=== PATIENT | male | born 1955 | race Two or more races ===

== ENCOUNTER 2024-03-07 04:47 | Inpatient (IN) | payer OTHER ==
[~2024-03-07] VITALS: Ht 175.3 cm; Wt 86.8 kg
[2024-03-07] VITALS (8 sets, daily range): BP systolic 112–125; BP diastolic 61–71; PULSE 69–123; RESP 12–21; TEMP 97.7–98.5; O2SAT 92–98
[2024-03-07 07:03] LABS: Basophils # (auto) 0.1 10 ^3/uL (0-0.2); Basophils % (auto) 0.5 % (0.0-2.0); Eosinophils # (auto) 0.1 10 ^3/uL (0-0.8); Eosinophils % (auto) 0.9 % (0.0-7.0); Hematocrit 49.3 % (41.0-53.0); Hemoglobin 16.7 g/dL (13.5-17.5); Lymphocytes % (auto) 18.8 % (10.0-50.0); Mean Corpuscular Hemoglobin 29.7 pg (28.0-32.0); Mean Corpuscular Hgb Conc. 33.9 g/dL (32.0-36.0); Mean Corpuscular Volume 87.6 fL (80.0-100.0); Monocytes # (auto) 1.1 10 ^3/uL (0-1.3); Monocytes % (auto) 10.5 % (0.0-12.0); Neutrophils # (auto) 7.5 10 ^3/uL (1.6-8.6); Neutrophils % (auto) 69.3 % (37.0-80.0); Nucleated Red Blood Cells % 0.1 %; Platelet Count (auto) 144 10^3/uL (140-450); Red Blood Cells 5.63 10^6/uL (4.5-5.90); Red Cell Distribution Width 14.5 % (11.8-14.3); White Blood Cell 10.8 10^3/uL (4.4-10.8)
[2024-03-07] MEDS: ONDANSETRON HCL 4 MG/2 ML VIAL IV ONE (07:07)
[2024-03-07] MEDS: MORPHINE SULFATE 4 MG/ML SYR/VIAL IV ONE (07:08)
--- NOTE | 2024-03-07 07:09 | ED.PDOC ---
GI ASSESSMENT HPI Comments 68y M who presents to the ED for chief complaint of abdominal pain. Pt states he has been having diffuse lower abdominal pain for the past 3 days. Pt states the pain is 9/10, intermittent, non-radiating, sharp and stabbing in nature, with no associated exacerbating or relieving factors. Pt has associated nausea but denies vomiting, diarrhea, fever, chills, dysuria, chest pain or shortness of breath. Pt otherwise denies any other symptoms at this time. Chief Complaint: Abdominal Pain Time Seen by MD: 07:04 Reviewed Notes: Medications, Allergies Allergies: Coded Allergies: NO KNOWN ALLERGIES (Unverified , 03/07/24) Information Source: Patient, Relative Mode of Arrival: Ambulatory Brought in by: daughter Past Medical History PAST MEDICAL HISTORY: DM, HTN Surgical History: Appendectomy Family History Family History: Unknown Social History Smoker: Unknown Alcohol: Unknown Drugs: Unknown Lives In: Home Constitutional: denies: chills, diaphoresis, fatigue, fever, malaise, sweats, weakness, others EENTM: denies: blurred vision, double vision, ear bleeding, ear discharge, ear drainage, ear pain, ear ringing, eye pain, eye redness, hearing loss, mouth pain, mouth swelling, nasal discharge, nose bleeding, nose congestion, nose pain, photophobia, tearing, throat pain, throat swelling, voice changes, others Respiratory: denies: cough, hemoptysis, orthopnea, SOB at rest, shortness of breath, SOB with excertion, stridor, wheezing, others Cardiovascular: denies: chest pain, dizzy spells, diaphoresis, Dyspnea on exertion, edema, irregular heart beat, left arm pain, lightheadedness, palpitations, PND, syncope, others Gastrointestinal: reports: abdominal pain; denies: abdomen distended, blood streaked bowels, constipated, diarrhea, dysphagia, difficulty swallowing, hematemesis, melena, nausea, poor appetite, poor fluid intake, rectal bleeding, rectal pain, vomiting, others Genitourinary: denies: burning, dysuria, flank pain, frequency, hematuria, incontinence, penile discharge, penile sore, pain, testicle pain, testicle swelling, urgency, others Neurological: denies: dizziness, fainting, headache, left sided numbness, left sided weakness, numbness, paresthesia, pre-existing deficit, right sided numbness, right sided weakness, seizure, speech problems, tingling, tremors, weakness, others Musculoskeletal: denies: back pain, gout, joint pain, joint swelling, muscle pain, muscle stiffness, neck pain, others Integumetry: denies: bruises, change in color, change in hair/nails, dryness, laceration, lesions, lumps, rash, wounds, others Allergic/Immunocompromised: denies: Difficulty Healing, Frequent Infections, Hives, Itching, others Hematologic/Lymphatic: denies: anemia, blood clots, easy bleeding, easy bruising, swollen glands, others Endocrine: denies: excessive hunger, excessive sweating, excessive thirst, excessive urination, flushing, intolerance to cold, intolerance to heat, unexplained weight gain, unexplained weight loss, others Psychiatric: denies: anxiety, bipolar disorder, depression, hopeless, panic disorder, schizophrenia, sleepless, suicidal, others All Other Systems: Reviewed and Negative Physical Exam General Appearance: Moderate Distress, Obese HEENT: Normal ENT Inspection, Pharynx Normal, TMs Normal Neck: Full Range of Motion, Non-Tender, Normal, Normal Inspection Respiratory: Chest Non-Tender, Lungs Clear, No Accessory Muscle Use, No Respiratory Distress, Normal Breath Sounds Cardiovascular: No Edema, No JVD, No Murmur, No Gallop, Normal Peripheral Pulses, Regular Rate/Rhythm Breast Exam: Deferred Gastrointestinal: Diffuse, No Organomegaly, No Pulsatile Mass, Normal Bowel Sounds, Soft Genitalia: Deferred Pelvic: Deferred Rectal: Deferred Extremities: No calf tenderness, Normal capillary refill, Normal inspection, Normal range of motion, Non-tender, No pedal edema Musculoskeletal : Apperance: Normal Neurologic: Alert, manager behavior II-XII nml as Tested, No Motor Deficits, Normal Affect, Normal Mood, No Sensory Deficits Cerebellar Function: NOT DONE Reflexes: NOT DONE Skin: Dry, Normal Color, Warm Peripheral Pulses: 3+ Radial (R), 3+ Radial (L) Lymphatic: No Adenopathy Was a procedure done? Was a procedure done?: No GI differential Dx Differential Diagnosis: Constipation, Diverticular disease, Esophagitis, Gastritis/PUD, Gastroenteritis, GI hemorrhage, Hernia, Pancreatitis, Dehydration, Food Poisoning, Bacterial, Viral, Anemia, Stress Ulcer, Kidney Stone X-Ray, Labs, Meds, VS Vital Signs Date Time Temp Pulse Resp B/P (MAP) Pulse Ox O2 Delivery O2 Flow Rate FiO2 03/07/24 07:08 99 17 144/88 03/07/24 05:40 102 12 95 Room Air* 0 21 03/07/24 05:40 97.6 102 12 131/73 (92) 95 97.6 03/07/24 04:53 97.6 111 18 144/93 (110) 94 Lab Test 03/07/24 06:48 Range/Units White Blood Count 10.8 4.4-10.8 10^3/uL Red Blood Count 5.63 4.5-5.90 10^6/uL Hemoglobin 16.7 13.5-17.5 g/dL Hematocrit 49.3 41.0-53.0 % Mean Corpuscular Volume 87.6 80.0-100.0 fL Mean Corpuscular Hemoglobin 29.7 28.0-32.0 pg Mean Corpuscular Hemoglobin Concent 33.9 32.0-36.0 g/dL Red Cell Distribution Width 14.5 H 11.8-14.3 % Platelet Count 144 140-450 10^3/uL Mean Platelet Volume 8.5 6.9-10.8 fL Neutrophils (%) (Auto) 69.3 37.0-80.0 % Lymphocytes (%) (Auto) 18.8 10.0-50.0 % Monocytes (%) (Auto) 10.5 0.0-12.0 % Eosinophils (%) (Auto) 0.9 0.0-7.0 % Basophils (%) (Auto) 0.5 0.0-2.0 % Neutrophils # (Auto) 7.5 1.6-8.6 10 ^3/uL Lymphocytes # (Auto) 2.0 0.4-5.4 10 ^3/uL Monocytes # (Auto) 1.1 0-1.3 10 ^3/uL Eosinophils # (Auto) 0.1 0-0.8 10 ^3/uL Basophils # (Auto) 0.1 0-0.2 10 ^3/uL Nucleated Red Blood Cells 0.1 % Sodium Level 138 136-145 mmol/L Potassium Level 3.8 3.5-5.1 mmol/L Chloride Level 104 98-107 mmol/L Carbon Dioxide Level 27 20-31 mmol/L Anion Gap 7 5-15 Blood Urea Nitrogen 12 9-23 mg/dL Creatinine 0.94 0.700-1.30 mg/dL Glomerular Filtration Rate Calc 88 >90 mL/min BUN/Creatinine Ratio 12.8 10.0-20.0 Serum Glucose 147 H 74-106 mg/dL Calcium Level 9.4 8.7-10.4 mg/dL Current Medications Medications (Trade) Dose Ordered Sig/Barb Route Start Time Stop Time Status Last Admin Morphine Sulfate 4 mg ONCE ONCE IV 03/07/24 06:45 03/07/24 06:46 DC 03/07/24 07:08 Ondansetron HCl (Zofran) 4 mg ONCE ONCE IV 03/07/24 06:45 03/07/24 06:46 DC 03/07/24 07:07 Exam: CT CT AB PEL WO CON-NO ORAL OR IV IMPRESSION: 1. Mild right hydroureteronephrosis due to a 4 mm stone in the mid right ureteral calculus. 2. Left renal cyst. Patient alert. Complaining of abdominal pain. He is obese. Vitals stable. Was given morphine for pain. Was given Zofran. Blood sugar elevated. Excruciating pain. WBC within normal limits. Hemoglobin within normal limits. Reviewed his history. Explained to the patient. Time of 1ST Reevaluation: 07:30 Reevaluation 1ST: Unchanged Patient Education/Counseling: Diagnosis, Treatment Family Education/Counseling: No Family Present Departure 1 Departure Time of Disposition: 07:39 Impression: Primary Impression: Acute abdominal pain Additional Impression: Hyperglycemia Disposition: ADMITTED INPATIENT Admit to: Med Surg Condition: Guarded Critical Care Note Critical Care Time?: Yes (45 min-critical care time only) Stability Stability form required: No Heart Score Heart Score: Heart Score Response (Comments) Value History N/A 0 EKG N/A 0 Age N/A 0 Risk Factors N/A 0 Troponin N/A 0 Total 0 I personally scribed for SHAQUILLE PALOMO MD (EDMOND) on 03/07/24 at 07:09. Electronically submitted by Eber VENTURA). I personally scribed for SHAQUILLE PALOMO MD (EDMOND) on 03/07/24 at 07:56. Electronically submitted by Eber VENTURA). SHAQUILLE PALOMO MD Mar 07, 2024 07:09
[2024-03-07 07:19] LABS: Chloride 104 mmol/L (98-107); Potassium 3.8 mmol/L (3.5-5.1); Sodium 138 mmol/L (136-145)
[2024-03-07 07:20] LABS: Anion Gap 7 (5-15); Carbon Dioxide 27 mmol/L (20-31)
[2024-03-07 07:21] LABS: Calcium 9.4 mg/dL (8.7-10.4)
[2024-03-07 07:25] LABS: BUN/Creatinine Ratio 12.8 (10.0-20.0); Blood Urea Nitrogen 12 mg/dL (9-23); Glucose 147 mg/dL (74-106)
--- NOTE | 2024-03-07 07:50 | DVH ---
Exam: CT CT AB PEL WO CON-NO ORAL OR IV History: Colitis Comparison Study: None available at time of dictation. TECHNIQUE: Multidetector CT of the abdomen and pelvis was performed from lung bases to ischial tubero sities. Imaging was performed without IV contrast using axial images. Coronal and sagittal reformats were obtained from the axial data set by the technologist. Radiation Dose Information: CT Dose: CTDI volume is 23.4 mGy. Dose-length product is 1710.03 mGy*cm FINDINGS: Evaluation of solid organs is limited due to lack of intravenous contrast use. Findings: Lung Bases: No acute or significant lung base finding. Normal heart size. No pleural or pericardial effusion. Liver: The liver is normal in size. No focal lesions. Gallbladder and Biliary Tree: Cholecystectomy. No biliary ductal dilatation. Spleen: Unremarkable Pancreas: The pancreas is grossly normal in appearance. Adrenal Glands: Unremarkable Kidneys: Mild right hydroureteronephrosis to the level of a 4 mm obstructing mid right ureteral calcu jane. Partially calcified right renal cyst measuring 10 mm. Left renal exophytic lesion measuring 4.1 cm arising from the upper pole compatible with a cyst. GI Tract: The stomach is grossly normal in appearance. Small bowel and colon are normal in caliber an d distribution. The appendix is not visualized; however, no secondary findings of acute appendicitis identified. Peritoneal cavity: No pneumoperitoneum. No ascites. Lymphadenopathy: No mesenteric, retroperitoneal or periportal lymphadenopathy. Abdominal Wall and Mesentery: Unremarkable. Vasculature: The visualized abdominal aorta is normal in size and caliber. Evaluation of abdominal a nd pelvic vessels is limited due to lack of intravenous contrast. There are atherosclerotic calcific ations in the aorta. Pelvic Organs: Unremarkable Urinary Bladder: Grossly unremarkable for degree of distention. Musculoskeletal: No aggressive focal bony lesions, acute fractures or dislocation. Multilevel lumbar spondylosis. Soft tissues: Unremarkable IMPRESSION: 1. Mild right hydroureteronephrosis due to a 4 mm stone in the mid right ureteral calculus. 2. Left renal cyst. Radiation optimization: All CT scans at this facility use at least one of these dose optimization fernanda hniques: automated exposure control mA and/or kV adjustment per patient size (includes targeted exam s where dose is matched to clinical indication) or iterative reconstruction.
[2024-03-07] MEDS: SODIUM CHLORIDE 0.9% 1,000 ML IV ONE (08:57)
[2024-03-07] MEDS: KETOROLAC TROMETH 30 MG/ML 1ML VIAL IV ONE (08:57)
[2024-03-07] MEDS: TAMSULOSIN HYDROCHLORIDE 0.4 MG CAP PO ONE (10:25)
[2024-03-07] MEDS: FUROSEMIDE 40 MG/4 ML VIAL IV ONE (10:25)
[2024-03-07] MEDS ORDERED: KETOROLAC TROMETH 30 MG/ML 1ML VIAL IV PRN (11:30)
[2024-03-07] MEDS ORDERED: NITROGLYCERIN 0.4 MG SL TAB SL PRN (11:30)
[2024-03-07] MEDS ORDERED: ONDANSETRON HCL 4 MG/2 ML VIAL IV PRN (11:30)
[2024-03-07] MEDS ORDERED: SODIUM CHLORIDE 0.9% 1,000 ML IV SCH (11:30)
[2024-03-07] MEDS ORDERED: MORPHINE SULFATE INJ 2 MG/ml SYRG IV PRN (11:30)
[2024-03-07 12:22] LABS: Urine Bacteria None Seen /hpf (None Seen)
[2024-03-07] MEDS: MANNITOL 20% SOLN 100 gm/500ml 300 ML IV ONE (12:37)
[2024-03-07] MEDS ORDERED: DEXTROSE (50%) 50ML SYRG IV PRN (12:45)
[2024-03-07] MEDS ORDERED: HYDROcodone-ACET 5/325MG TAB PO PRN (12:45)
[2024-03-07 12:55] LABS: Urine Blood 1+ /uL (Negative); Urine Budding Yeast OCCASIONAL /hpf (None Seen); Urine Clarity Clear (Clear); Urine Color Light-Yellow (Yellow); Urine Hyaline Cast FEW /lpf (0 - 2); Urine Mucus FEW (None Seen); Urine Protein, UAD Negative (Negative); Urine Specific Gravity 1.013 (1.001-1.035); Urine Urobilinogen Normal (Negative); Urine WBC 1 /hpf (0 - 3); Urine pH 6.5 (5.0-9.0)
--- NOTE | 2024-03-07 13:46 | DVH ---
Bilateral lower extremity venous Doppler INDICATION: Lower extremity swelling. Rule out deep vein thrombosis. TECHNIQUE: Duplex venous sonography was performed with real-time and flow sensitive images submitted for evaluation. FINDINGS: Normal phasic venous flow. Veins are fully compressible. No filling defects. IMPRESSION: 1. No evidence of deep vein thrombosis.
[2024-03-07] MEDS: SODIUM CHLORIDE 0.9% 1,000 ML IV SCH (13:54)
--- NOTE | 2024-03-07 14:53 | DVHHP2 ---
History of Present Illness Reason for Visit: Flank pain History of Present Illness 68y M who presents to the ED for chief complaint of abdominal pain. Pt states he has been having diffuse lower abdominal pain for the past 3 days. Pt states the pain is 9/10, intermittent, non-radiating, sharp and stabbing in nature, with no associated exacerbating or relieving factors. Pt has associated nausea but denies vomiting, diarrhea, fever, chills, dysuria, chest pain or shortness of breath. Pt otherwise denies any other symptoms at this time. He is noted to have 4 mm mid to distal right ureteral stone on the CT of the abdomen and pelvis. [place] causing his symptoms therefore he is being admitted to the hospital for further evaluation and pain management. Past Medical History DM, HTN, morbid obesity, obstructive sleep apnea on CPAP, chronic heart failure Past Surgical History Appendectomy Family History: Hypertension Smoke: No ALCOHOL: rare Lives: with Family Review of Systems Review of Systems No fevers chills or sweats. No nausea or vomiting. No chest pain shortness for breath. Other review of systems reviewed normal Allergies: Coded Allergies: NO KNOWN ALLERGIES (Unverified , 03/07/24) Medications Current Medications Medications Dose Ordered Sig/Barb Route Start Time Stop Time Status Last Admin Dose Admin Nitroglycerin 0.4 mg Q5MINP PRN SL 03/07/24 11:30 Morphine Sulfate 2 mg Q30M PRN IV 03/07/24 11:30 Ceftriaxone Sodium 50 ml @ 100 mls/hr DAILY@09 IV 03/08/24 09:00 Ketorolac Tromethamine 30 mg Q6HPRN PRN IV 03/07/24 11:30 03/12/24 11:29 Ondansetron HCl 4 mg Q4HPRN PRN IV 03/07/24 11:30 Famotidine 20 mg DAILY PO 03/08/24 10:00 Tamsulosin HCl 0.8 mg QPM PO 03/07/24 18:00 Sodium Chloride 1,000 ml @ 100 mls/hr Q10H IV 03/07/24 12:45 03/07/24 13:54 100 MLS/HR Diagnostic Test (Pha) 1 strip ACHS 03/07/24 17:00 Insulin Human Regular ACHS SC 03/07/24 17:00 Dextrose 50 ml UD PRN IV 03/07/24 12:45 Metoprolol Tartrate 12.5 mg BID PO 03/07/24 22:00 Finasteride 5 mg DAILY PO 03/08/24 10:00 Furosemide 40 mg BIDD PO 03/07/24 18:00 Potassium Chloride 10 meq BID PO 03/07/24 22:00 Acetaminophen/ Hydrocodone Bitart 1 tab Q4HPRN PRN PO 03/07/24 12:45 Enoxaparin Sodium 40 mg DAILY SC 03/08/24 10:00 Exam Vital Signs Vital Signs Date Time Temp Pulse Resp B/P (MAP) Pulse Ox O2 Delivery O2 Flow Rate FiO2 03/07/24 14:00 123 12 112/68 (83) 92 03/07/24 07:30 Room Air* 0 21 03/07/24 07:30 98.2 98.2 Exam Alert awake oriented x3 comfortable in bed. Obese gentleman. Family is bedside. Complains of mild flank pain. HEENT neck supple no JVD. Heart regular rate and rhythm S1 and S2. Lungs fair air movement without rales wheezes. Abdomen obese soft nontender unable to palpate any organomegaly. Positive bowel sounds. Extremities 1+ edema. Positive distal pedal pulses Labs/Xrays Labs Test 03/07/24 06:48 03/07/24 04:57 Range/Units White Blood Count 10.8 4.4-10.8 10^3/uL Red Blood Count 5.63 4.5-5.90 10^6/uL Hemoglobin 16.7 13.5-17.5 g/dL Hematocrit 49.3 41.0-53.0 % Mean Corpuscular Volume 87.6 80.0-100.0 fL Mean Corpuscular Hemoglobin 29.7 28.0-32.0 pg Mean Corpuscular Hemoglobin Concent 33.9 32.0-36.0 g/dL Red Cell Distribution Width 14.5 H 11.8-14.3 % Platelet Count 144 140-450 10^3/uL Mean Platelet Volume 8.5 6.9-10.8 fL Neutrophils (%) (Auto) 69.3 37.0-80.0 % Lymphocytes (%) (Auto) 18.8 10.0-50.0 % Monocytes (%) (Auto) 10.5 0.0-12.0 % Eosinophils (%) (Auto) 0.9 0.0-7.0 % Basophils (%) (Auto) 0.5 0.0-2.0 % Neutrophils # (Auto) 7.5 1.6-8.6 10 ^3/uL Lymphocytes # (Auto) 2.0 0.4-5.4 10 ^3/uL Monocytes # (Auto) 1.1 0-1.3 10 ^3/uL Eosinophils # (Auto) 0.1 0-0.8 10 ^3/uL Basophils # (Auto) 0.1 0-0.2 10 ^3/uL Nucleated Red Blood Cells 0.1 % Sodium Level 138 136-145 mmol/L Potassium Level 3.8 3.5-5.1 mmol/L Chloride Level 104 98-107 mmol/L Carbon Dioxide Level 27 20-31 mmol/L Anion Gap 7 5-15 Blood Urea Nitrogen 12 9-23 mg/dL Creatinine 0.94 0.700-1.30 mg/dL Glomerular Filtration Rate Calc 88 >90 mL/min BUN/Creatinine Ratio 12.8 10.0-20.0 Serum Glucose 147 H 74-106 mg/dL Calcium Level 9.4 8.7-10.4 mg/dL Urine Color Light-yellow Yellow Urine Clarity Clear Clear Urine pH 6.5 5.0-9.0 Urine Specific [place] 1.013 1.001-1.035 Urine Protein Negative Negative Urine Ketones Negative Negative Urine Blood 1+ H Negative /uL Urine Nitrite Negative Negative Urine Bilirubin Negative Negative Urine Urobilinogen Normal Negative mg/dL Urine Leukocyte Esterase Negative Negative /uL Urine RBC 4 0 - 3 /hpf Urine WBC 1 0 - 3 /hpf Urine Squamous Epithelial Cells None seen <5 /hpf Urine Bacteria None seen None Seen /hpf Urine Hyaline Casts Few 0 - 2 /lpf Urine Mucus Few None Seen Urine Yeast (Budding) Occasional None Seen /hpf Urine Glucose Normal Normal mg/dL Assessment/Plan Assessment/Plan We will admit him to hospital. Urology consultation. Strain urine. Aggressive IV fluids with the forced diuresis IV Lasix. Mannitol for renal diuresis. Pain and nausea medications. Empiric antibiotics. Supportive care and treatment. Otherwise resume his home cardiac medications. Further clinical management per clinical course and recommendations from Urology. Discussed with the patient and family regarding care plan. Plan discussed with: Patient, Other My Orders Orders - JUDY VALENCIA MD Procedure Category Date Status Time Admit ADMIT 03/07/24 Transmitted 11:25 * Urology Consult CONS 03/07/24 Transmitted 11:25 Complete Blood Count LAB 03/08/24 Verified 05:00 Complete Blood Count LAB 03/09/24 Verified 05:00 Complete Blood Count LAB 03/10/24 Verified 05:00 Complete Blood Count LAB 03/11/24 Verified 05:00 Comprehensive LAB 03/08/24 Verified Metabolic Panel 04:00 Urine Bacterial LETICIA 03/07/24 In Process Culture 11:25 PTPTT LAB 03/08/24 Verified 04:00 Pt Request For Service PT 03/07/24 Logged 11:25 Nitroglycerin PHA 03/07/24 In Process Sublingual (Ntrostat 11:30 Morphine Sulfate PHA 03/07/24 In Process Injection 11:30 Stat Ekg For Chest EDWARD 03/07/24 In Process Pain 11:25 Notify Of Changes [facility] 03/07/24 In Process From Base 11:25 Cheesemaker For [facility] 03/07/24 In Process 24 Hours 11:25 Emergency Dysrhythmia [facility] 03/07/24 In Process Protocol 11:25 Rhythm Strips Once [facility] 03/07/24 In Process Every Shift 11:25 Oxygen By Nasal RT 03/07/24 Transmitted Cannula 11:25 Ceftriaxone 1gm/50ml PHA 03/08/24 In Process D5w (Rocephin) 09:00 Ketorolac Injection PHA 03/07/24 In Process (Toradol Injection) 11:30 Ondansetron Hcl PHA 03/07/24 In Process (Zofran) 11:30 Famotidine Tablet PHA 03/08/24 In Process (Pepcid Tablet) 10:00 Tamsulosin PHA 03/07/24 In Process Hydrochloride (Flomax) 18:00 Sodium Chloride 0.9% PHA 03/07/24 In Process 12:45 Glucose Blood PHA 03/07/24 In Process (Accu-Chek Comfort 17:00 Insulin R (Human) PHA 03/07/24 In Process (Insulin R) 17:00 Dextrose 50% Syringe PHA 03/07/24 In Process 12:45 Cardiac DIET 03/07/24 Transmitted Diet-2gna,Lofat,Lochol Lunch Metoprolol Tartrate PHA 03/07/24 In Process Tablet (Lopressor Ta 22:00 Finasteride Tablet PHA 03/08/24 In Process (Proscar Tablet) 10:00 Potassium Er Tablet PHA 03/07/24 In Process (Klor-Con Tablet) 22:00 Hydrocodone-Acet PHA 03/07/24 In Process 5/325mg Tab ([place] 12:45 Enoxaparin Sodium PHA 03/08/24 In Process (Lovenox) 10:00 Bilat Lower Dvt US 03/07/24 Resulted 12:38 Echo 2d Mode Cardiac US 03/07/24 Logged DOP 12:38 Bipap/Cpap For Sleep RT 03/07/24 Logged Apnea 12:42 Furosemide Tablet PHA 03/07/24 In Process (Lasix Tablet) 18:00 Problem List: (1) Acute abdominal pain (2) Hyperglycemia JUDY VALENCIA MD Mar 07, 2024 14:53
[2024-03-07] MEDS: ACCU-CHEK COMFORT CURVE STRIP VI SCH (17:00)
[2024-03-07] MEDS: InsuLIN REG 1unit/0.01ml Soln (100units/ml) SC SCH (17:00)
[2024-03-07] MEDS: TAMSULOSIN HYDROCHLORIDE 0.4 MG CAP PO SCH (20:22)
[2024-03-07] MEDS: FUROSEMIDE 40 MG TAB PO SCH (20:22)
[2024-03-07] MEDS: POTASSIUM CHL 10 Meq TABLET PO SCH (22:18)
[2024-03-07] MEDS: METOPROLOL TARTRATE 25 MG TAB PO SCH (22:26)
[2024-03-08] VITALS (10 sets, daily range): BP systolic 105–147; BP diastolic 56–83; PULSE 70–102; RESP 14–18; TEMP 97.7–98.8; O2SAT 94–99
[2024-03-08 06:11] LABS: Basophils # (auto) 0 10 ^3/uL (0-0.2); Basophils % (auto) 0.5 % (0.0-2.0); Eosinophils # (auto) 0.2 10 ^3/uL (0-0.8); Eosinophils % (auto) 1.9 % (0.0-7.0); Hematocrit 45.1 % (41.0-53.0); Hemoglobin 15.1 g/dL (13.5-17.5); Lymphocytes # (auto) 2.1 10 ^3/uL (0.4-5.4); Lymphocytes % (auto) 22.7 % (10.0-50.0); Mean Corpuscular Hemoglobin 29.4 pg (28.0-32.0); Mean Corpuscular Hgb Conc. 33.4 g/dL (32.0-36.0); Mean Corpuscular Volume 87.9 fL (80.0-100.0); Monocytes # (auto) 0.9 10 ^3/uL (0-1.3); Monocytes % (auto) 9.8 % (0.0-12.0); Neutrophils # (auto) 6.1 10 ^3/uL (1.6-8.6); Neutrophils % (auto) 65.1 % (37.0-80.0); Nucleated Red Blood Cells % 0.1 %; Platelet Count (auto) 134 10^3/uL (140-450); Red Blood Cells 5.13 10^6/uL (4.5-5.90); Red Cell Distribution Width 14.6 % (11.8-14.3); White Blood Cell 9.4 10^3/uL (4.4-10.8)
[2024-03-08 06:24] LABS: INR 1.08 (0.9-1.15); Partial Thromboplastin Time 27.1 SEC (24.5-34.5); Prothrombin Time 11.4 sec (9.3-11.8)
[2024-03-08 06:34] LABS: Alanine Aminotransferase 12 U/L (7-40); Albumin 3.9 g/dL (3.2-4.8); Alkaline Phosphatase 62 U/L (46-116); Anion Gap 8 (5-15); Aspartate Aminotransferase 11 U/L (13-40); BUN/Creatinine Ratio 12.1 (10.0-20.0); Bilirubin, Total 0.8 mg/dL (0.2-1.0); Blood Urea Nitrogen 15 mg/dL (9-23); Calcium 8.8 mg/dL (8.7-10.4); Carbon Dioxide 26 mmol/L (20-31); Chloride 104 mmol/L (98-107); Glucose 147 mg/dL (74-106); Potassium 3.8 mmol/L (3.5-5.1); Sodium 138 mmol/L (136-145); Total Protein 6.2 g/dL (5.7-8.2)
--- NOTE | 2024-03-08 09:17 | DVHINCON2 ---
Date of service: Mar 08, [address] Raines Reason for Consultation ureteral stone History of Present Illness History Source: Patient, RN Notes, Old Records Exam Limitations: No limitations HPI 68y M who presents to the ED for chief complaint of abdominal pain. Pt states he has been having diffuse lower abdominal pain for the past 3 days. Pt states the pain is 9/10, intermittent, non-radiating, sharp and stabbing in nature, with no associated exacerbating or relieving factors. Pt has associated nausea but denies vomiting, diarrhea, fever, chills, dysuria, chest pain or shortness of breath. Pt otherwise denies any other symptoms at this time. CT shows 4 mm right ureteral stone with mild hydro. He is having urinary frequency. mild pain to the back. Past Medical History Patient Family History: Patient reports no known family medical history. Review of Systems Gastrointestinal: Abdominal Pain Genitourinary: Frequency, Pain H&P Exam Vital Signs Vital Signs Date Time Temp Pulse Resp B/P (MAP) Pulse Ox O2 Delivery O2 Flow Rate FiO2 03/08/24 08:23 94 Room Air* 0 21 03/08/24 06:25 105/69 03/08/24 05:00 98.4 70 16 98.4 General Appeara: Well developed, Well nourished, Normal Appearance, Obese Neuro/Mental St: Alert, Oriented Appearance: Appropriate appearance, Appropriate insight Eye contact/ Speech: Cooperative, Good eye contact, Normal speech Skin Exam: Normal inspection, Normal color, Warm/dry Labs/Xrays [place] [id number] Ph: [phone] DIAGNOSTIC IMAGING Diagnostic Imaging Report : [id number] Signed PATIENT: ISAURA MURRIETAOACCT: [id number] UNIT: [id number] : 1955 LOC: ER ROOM / BED: / AGE / SEX: 68 / M ADM STATUS: REG ER SERVICE 5 ORDERING PHYSICIAN: SHAQUILLE PALOMO MD PROCEDURE(s): ABPL - CT AB PEL WO CON-NO ORAL OR IV REASON: colitis ORDER NUMBER(s): [id number], ACCESSION NUMBER(s): [id number] Exam: CT CT AB PEL WO CON-NO ORAL OR IV History: Colitis Comparison Study: None available at time of dictation. TECHNIQUE: Multidetector CT of the abdomen and pelvis was performed from lung bases to ischial tuberosities. Imaging was performed without IV contrast using axial images. Coronal and sagittal reformats were obtained from the axial data set by the technologist. Radiation Dose Information: CT Dose: CTDI volume is 23.4 mGy. Dose-length product is 1710.03 mGy*cm FINDINGS: Evaluation of solid organs is limited due to lack of intravenous contrast use. Findings: Lung Bases: No acute or significant lung base finding. Normal heart size. No pleural or pericardial effusion. Liver: The liver is normal in size. No focal lesions. Gallbladder and Biliary Tree: Cholecystectomy. No biliary ductal dilatation. Spleen: Unremarkable Pancreas: The pancreas is grossly normal in appearance. Adrenal Glands: Unremarkable Kidneys: Mild right hydroureteronephrosis to the level of a 4 mm obstructing mid right ureteral calculus. Partially calcified right renal cyst measuring 10 mm. Left renal exophytic lesion measuring 4.1 cm arising from the upper pole compatible with a cyst. GI Tract: The stomach is grossly normal in appearance. Small bowel and colon are normal in caliber and distribution. The appendix is not visualized; however, no secondary findings of acute appendicitis identified. Peritoneal cavity: No pneumoperitoneum. No ascites. Lymphadenopathy: No mesenteric, retroperitoneal or periportal lymphadenopathy. Abdominal Wall and Mesentery: Unremarkable. Vasculature: The visualized abdominal aorta is normal in size and caliber. Evaluation of abdominal and pelvic vessels is limited due to lack of intravenous contrast. There are atherosclerotic calcifications in the aorta. Pelvic Organs: Unremarkable Urinary Bladder: Grossly unremarkable for degree of distention. Musculoskeletal: No aggressive focal bony lesions, acute fractures or dislocation. Multilevel lumbar spondylosis. Soft tissues: Unremarkable IMPRESSION: 1. Mild right hydroureteronephrosis due to a 4 mm stone in the mid right ureteral calculus. 2. Left renal cyst. Radiation optimization: All CT scans at this facility use at least one of these dose optimization techniques: automated exposure control mA and/or kV adjustment per patient size (includes targeted exams where dose is matched to clinical indication) or iterative reconstruction. ATED BY: JESS BAUMANN MD DICTATED DATE/TIME: 03/07/24747 SIGNED BY: JESS BAUMANN MD SIGNED DATE/TIME: 03/07/24 0748 CC: Labs Test 03/08/24 06:06 03/08/24 05:57 03/07/24 04:57 Range/Units POC Glucose 172 H 70-106 mg/dl White Blood Count 9.4 4.4-10.8 10^3/uL Red Blood Count 5.13 4.5-5.90 10^6/uL Hemoglobin 15.1 13.5-17.5 g/dL Hematocrit 45.1 41.0-53.0 % Mean Corpuscular Volume 87.9 80.0-100.0 fL Mean Corpuscular Hemoglobin 29.4 28.0-32.0 pg Mean Corpuscular Hemoglobin Concent 33.4 32.0-36.0 g/dL Red Cell Distribution Width 14.6 H 11.8-14.3 % Platelet Count 134 L 140-450 10^3/uL Mean Platelet Volume 8.5 6.9-10.8 fL Neutrophils (%) (Auto) 65.1 37.0-80.0 % Lymphocytes (%) (Auto) 22.7 10.0-50.0 % Monocytes (%) (Auto) 9.8 0.0-12.0 % Eosinophils (%) (Auto) 1.9 0.0-7.0 % Basophils (%) (Auto) 0.5 0.0-2.0 % Neutrophils # (Auto) 6.1 1.6-8.6 10 ^3/uL Lymphocytes # (Auto) 2.1 0.4-5.4 10 ^3/uL Monocytes # (Auto) 0.9 0-1.3 10 ^3/uL Eosinophils # (Auto) 0.2 0-0.8 10 ^3/uL Basophils # (Auto) 0 0-0.2 10 ^3/uL Nucleated Red Blood Cells 0.1 % Prothrombin Time 11.4 9.3-11.8 sec Prothrombin Time INR 1.08 0.9-1.15 Activated Partial Thromboplast Time 27.1 24.5-34.5 SEC Sodium Level 138 136-145 mmol/L Potassium Level 3.8 3.5-5.1 mmol/L Chloride Level 104 98-107 mmol/L Carbon Dioxide Level 26 20-31 mmol/L Anion Gap 8 5-15 Blood Urea Nitrogen 15 9-23 mg/dL Creatinine 1.24 0.700-1.30 mg/dL Glomerular Filtration Rate Calc 63 >90 mL/min BUN/Creatinine Ratio 12.1 10.0-20.0 Serum Glucose 147 H 74-106 mg/dL Calcium Level 8.8 8.7-10.4 mg/dL Total Bilirubin 0.8 0.2-1.0 mg/dL Aspartate Amino Transferase (AST) 11 L 13-40 U/L Alanine Aminotransferase (ALT) 12 7-40 U/L Alkaline Phosphatase 62 46-116 U/L Total Protein 6.2 5.7-8.2 g/dL Albumin 3.9 3.2-4.8 g/dL Urine Color Light-yellow Yellow Urine Clarity Clear Clear Urine pH 6.5 5.0-9.0 Urine Specific [place] 1.013 1.001-1.035 Urine Protein Negative Negative Urine Ketones Negative Negative Urine Blood 1+ H Negative /uL Urine Nitrite Negative Negative Urine Bilirubin Negative Negative Urine Urobilinogen Normal Negative mg/dL Urine Leukocyte Esterase Negative Negative /uL Urine RBC 4 0 - 3 /hpf Urine WBC 1 0 - 3 /hpf Urine Squamous Epithelial Cells None seen <5 /hpf Urine Bacteria None seen None Seen /hpf Urine Hyaline Casts Few 0 - 2 /lpf Urine Mucus Few None Seen Urine Yeast (Budding) Occasional None Seen /hpf Urine Glucose Normal Normal mg/dL Assessment/Plan Problem List: (1) Ureteral stone with hydronephrosis Plan expulsive measures pain control strain urine outpt ESWL TBA if fails trial of passage. Plan discussed with: Patient, Other TAY VU NP Mar 08, 2024 09:17
[2024-03-08] MEDS: cefTRIAXone 1GM/50ML D5W 50 ML IV SCH (09:35)
[2024-03-08] MEDS: FAMOTIDINE 20 MG TAB PO SCH (09:36)
[2024-03-08] MEDS: ENOXAPARIN SOD 40 MG/0.4 ML SYRINGE SC SCH (09:36)
[2024-03-08] MEDS: FINASTERIDE 5 MG TAB PO SCH (09:36)
--- NOTE | 2024-03-08 10:10 | DVHSR ---
APPROVED REPORT EXAM: LIMITED Two-dimensional and M-mode echocardiogram with Doppler and color Doppler. Blood Pressure: 105/69 mmHg INDICATION SOB/CHF RISK FACTORS Obesity: Height: 5'9", Weight: 368 DIMENSIONS LVDd (3.8-5.7cm)LA (2D)4.0 (1.9-4.0cm)Aortic Root (2.0-3.7cm) EF (%) 41.0 (55-70%)Rt. Atrium3.5 (1.9-4.0cm)Asc. Aorta cm Mitral Valve MitralMitral Stenosis E wave1.06m/sMV Mean GR.mmHg E/A ratio0.02D MVAcm2 Aortic Valve Aortic ValveAortic Stenosis V10.91m/Elaine Mean GR.5mmHg V21.46m/Elaine Peak GR.9mmHg LVOT Diameter1.9 (1.8-2.4cm)Doppler AVA1.77cm2 Other Information Quality : Technically LimitedRhythm : Technically limited study due to body habitus. Conclusion Patient is in fast atrial fibrillation, making accurate assessment of left ventricular ejection fract ion limited, Overall estimated left ventricular systolic function is 45-50% %. Grossly normal right ventricular size and dimension. No significant valve pathology was noted. No significant pericardial effusion.
[2024-03-08] MEDS: METOPROLOL TARTRATE 25 MG TAB PO ONE (10:45)
[2024-03-08] MEDS: DIGOXIN (250MCG/ML) 2 ML AMPULE IV ONE (11:45)
--- NOTE | 2024-03-08 11:47 | DVHPN2 ---
Progress Note - Dictate Date Seen: Mar 08, 2024 Medical Necessity Reason Pt with a Central, PICC or Fol: No Subjective Alert awake oriented x3. Son at bedside. Says abdominal pain is improved today. vital signs Vital Sign Date Time Temp Pulse Resp B/P (MAP) Pulse Ox O2 Delivery O2 Flow Rate FiO2 03/08/24 10:45 105 116/66 03/08/24 09:00 98.0 18 96 98.0 03/08/24 08:23 Room Air* 0 21 Total Intake and Output 03/07/24 03/07/24 03/08/24 15:00 23:00 07:00 Intake Total 100 ml 100 ml 800 ml Balance 100 ml 100 ml 800 ml medications Current Medications Medications Dose Ordered Sig/Barb Route Start Time Stop Time Status Last Admin Dose Admin Nitroglycerin 0.4 mg Q5MINP PRN SL 03/07/24 11:30 Morphine Sulfate 2 mg Q30M PRN IV 03/07/24 11:30 Ceftriaxone Sodium 50 ml @ 100 mls/hr DAILY@09 IV 03/08/24 09:00 03/08/24 09:35 100 MLS/HR Ketorolac Tromethamine 30 mg Q6HPRN PRN IV 03/07/24 11:30 03/12/24 11:29 Ondansetron HCl 4 mg Q4HPRN PRN IV 03/07/24 11:30 Famotidine 20 mg DAILY PO 03/08/24 10:00 03/08/24 09:36 20 MG Tamsulosin HCl 0.8 mg QPM PO 03/07/24 18:00 03/07/24 20:22 0.8 MG Sodium Chloride 1,000 ml @ 100 mls/hr Q10H IV 03/07/24 12:45 03/07/24 22:26 100 MLS/HR Diagnostic Test (Pha) 1 strip ACHS 03/07/24 17:00 03/08/24 11:27 1 STRIP Insulin Human Regular ACHS SC 03/07/24 17:00 03/08/24 06:30 3 UNITS Dextrose 50 ml UD PRN IV 03/07/24 12:45 Finasteride 5 mg DAILY PO 03/08/24 10:00 03/08/24 09:36 5 MG Furosemide 40 mg BIDD PO 03/07/24 18:00 03/08/24 06:25 40 MG Potassium Chloride 10 meq BID PO 03/07/24 22:00 03/08/24 09:36 10 MEQ Acetaminophen/ Hydrocodone Bitart 1 tab Q4HPRN PRN PO 03/07/24 12:45 Enoxaparin Sodium 40 mg DAILY SC 03/08/24 10:00 03/08/24 09:36 40 MG Metoprolol Tartrate 25 mg BID PO 03/08/24 22:00 objective HEENT neck supple no JVD. Heart regular rate and rhythm S1 and S2. Lungs fair air movement without wheezing. Abdomen soft obese positive bowel sounds nontender. Extremities no edema. laboratory and microbiology Laboratory Tests 03/08/24 05:57 Test 03/08/24 05:57 Range/Units Serum Glucose 147 H 74-106 mg/dL Assessment/Plan Atrial fibrillation with a rapid ventricular rate. I will give him digoxin IV one dose today. Increase his metoprolol to planned to be b.i.d.. Otherwise continue rest of supportive care and treatment. He is evaluated by urologist recommend outpatient follow up for ureteral stone. Otherwise continue rest of supportive care and treatment. Follow clinical management per clinical course. Discussed with the patient and nurse regarding care plan. Problems(with codes): (1) Acute abdominal pain (2) Hyperglycemia (3) Ureteral stone with hydronephrosis Plan discussed with: Other JUDY VALENCIA MD Mar 08, 2024 11:47
[2024-03-08] MEDS: APIXABAN 5 MG TAB PO SCH (20:53)
[2024-03-08] MEDS: METOPROLOL TARTRATE 25 MG TAB PO SCH (21:05)
[2024-03-08] MEDS ORDERED: APIXABAN 5 MG TAB PO SCH (22:00)
[2024-03-09] VITALS (8 sets, daily range): BP systolic 119–147; BP diastolic 64–86; PULSE 62–92; RESP 15–16; TEMP 98.2–98.9; O2SAT 92–96
[2024-03-09 06:27] LABS: Basophils # (auto) 0 10 ^3/uL (0-0.2); Basophils % (auto) 0.3 % (0.0-2.0); Eosinophils # (auto) 0.2 10 ^3/uL (0-0.8); Eosinophils % (auto) 2.1 % (0.0-7.0); Hematocrit 43.9 % (41.0-53.0); Hemoglobin 15.1 g/dL (13.5-17.5); Lymphocytes # (auto) 1.8 10 ^3/uL (0.4-5.4); Lymphocytes % (auto) 18.4 % (10.0-50.0); Mean Corpuscular Hgb Conc. 34.3 g/dL (32.0-36.0); Mean Corpuscular Volume 87.3 fL (80.0-100.0); Monocytes # (auto) 1.2 10 ^3/uL (0-1.3); Monocytes % (auto) 11.5 % (0.0-12.0); Neutrophils # (auto) 6.8 10 ^3/uL (1.6-8.6); Neutrophils % (auto) 67.7 % (37.0-80.0); Nucleated Red Blood Cells % 0.1 %; Platelet Count (auto) 143 10^3/uL (140-450); Red Blood Cells 5.02 10^6/uL (4.5-5.90); Red Cell Distribution Width 14.4 % (11.8-14.3)
[2024-03-09 06:41] LABS: Anion Gap 6 (5-15); Carbon Dioxide 29 mmol/L (20-31); Chloride 103 mmol/L (98-107); Potassium 3.8 mmol/L (3.5-5.1); Sodium 138 mmol/L (136-145)
[2024-03-09 06:47] LABS: BUN/Creatinine Ratio 11.9 (10.0-20.0); Blood Urea Nitrogen 16 mg/dL (9-23); Glucose 135 mg/dL (74-106)
[2024-03-09] MEDS: DIGOXIN 0.125 MG TAB PO SCH (10:00)
[2024-03-09] MEDS ORDERED: DIGOXIN 0.125 MG TAB PO SCH (10:00)
[2024-03-09] MEDS ORDERED: METO25TA5 PO (15:49)
[2024-03-09] MEDS ORDERED: TAMS-35 PO (15:49)
[2024-03-09] MEDS ORDERED: APIX5TAB PO (15:49)
[2024-03-09] MEDS ORDERED: ACET-1304 PO (15:49)
[2024-03-09] MEDS ORDERED: DIGO0.25 PO (15:49)
--- NOTE | 2024-03-09 15:50 | DVHDS2 ---
Discharge Summary Date of Admission Mar 07, 2024 at 11:25 Date of Discharge: Mar 09, 2024 Labs/Diagnostic Data: Laboratory Results Test 03/09/24 11:29 03/09/24 05:58 03/08/24 05:57 03/07/24 04:57 POC Glucose 148 mg/dl (70-106) White Blood Count 10.0 10^3/uL (4.4-10.8) Red Blood Count 5.02 10^6/uL (4.5-5.90) Hemoglobin 15.1 g/dL (13.5-17.5) Hematocrit 43.9 % (41.0-53.0) Mean Corpuscular Volume 87.3 fL (80.0-100.0) Mean Corpuscular Hemoglobin 30.0 pg (28.0-32.0) Mean Corpuscular Hemoglobin Concent 34.3 g/dL (32.0-36.0) Red Cell Distribution Width 14.4 % (11.8-14.3) Platelet Count 143 10^3/uL (140-450) Mean Platelet Volume 8.6 fL (6.9-10.8) Neutrophils (%) (Auto) 67.7 % (37.0-80.0) Lymphocytes (%) (Auto) 18.4 % (10.0-50.0) Monocytes (%) (Auto) 11.5 % (0.0-12.0) Eosinophils (%) (Auto) 2.1 % (0.0-7.0) Basophils (%) (Auto) 0.3 % (0.0-2.0) Neutrophils # (Auto) 6.8 10 ^3/uL (1.6-8.6) Lymphocytes # (Auto) 1.8 10 ^3/uL (0.4-5.4) Monocytes # (Auto) 1.2 10 ^3/uL (0-1.3) Eosinophils # (Auto) 0.2 10 ^3/uL (0-0.8) Basophils # (Auto) 0 10 ^3/uL (0-0.2) Nucleated Red Blood Cells 0.1 % Sodium Level 138 mmol/L (136-145) Potassium Level 3.8 mmol/L (3.5-5.1) Chloride Level 103 mmol/L (98-107) Carbon Dioxide Level 29 mmol/L (20-31) Anion Gap 6 (5-15) Blood Urea Nitrogen 16 mg/dL (9-23) Creatinine 1.34 mg/dL (0.700-1.30) Glomerular Filtration Rate Calc 57 mL/min (>90) BUN/Creatinine Ratio 11.9 (10.0-20.0) Serum Glucose 135 mg/dL (74-106) Calcium Level 9.0 mg/dL (8.7-10.4) Prothrombin Time 11.4 sec (9.3-11.8) Prothrombin Time INR 1.08 (0.9-1.15) Activated Partial Thromboplast Time 27.1 SEC (24.5-34.5) Total Bilirubin 0.8 mg/dL (0.2-1.0) Aspartate Amino Transferase (AST) 11 U/L (13-40) Alanine Aminotransferase (ALT) 12 U/L (7-40) Alkaline Phosphatase 62 U/L (46-116) Total Protein 6.2 g/dL (5.7-8.2) Albumin 3.9 g/dL (3.2-4.8) Thyroid Stimulating Hormone (TSH) 0.89 uIU/mL (0.55-4.78) Free Thyroxine (T4) Calculated 1.13 ng/dL (0.89-1.76) Urine Color Light-yellow (Yellow) Urine Clarity Clear (Clear) Urine pH 6.5 (5.0-9.0) Urine Specific [place] 1.013 (1.001-1.035) Urine Protein Negative (Negative) Urine Ketones Negative (Negative) Urine Blood 1+ /uL (Negative) Urine Nitrite Negative (Negative) Urine Bilirubin Negative (Negative) Urine Urobilinogen Normal mg/dL (Negative) Urine Leukocyte Esterase Negative /uL (Negative) Urine RBC 4 /hpf (0 - 3) Urine WBC 1 /hpf (0 - 3) Urine Squamous Epithelial Cells None seen /hpf (<5) Urine Bacteria None seen /hpf (None Seen) Urine Hyaline Casts Few /lpf (0 - 2) Urine Mucus Few (None Seen) Urine Yeast (Budding) Occasional /hpf (None Urine Glucose Normal mg/dL (Normal) Other Laboratory Tests 03/09/24 05:58 Brief Hx & Hospital Course: 68y M who presents to the ED for chief complaint of abdominal pain. Pt states he has been having diffuse lower abdominal pain for the past 3 days. Pt states the pain is 9/10, intermittent, non-radiating, sharp and stabbing in nature, with no associated exacerbating or relieving factors. Pt has associated nausea but denies vomiting, diarrhea, fever, chills, dysuria, chest pain or shortness of breath. Pt otherwise denies any other symptoms at this time. He is noted to have 4 mm mid to distal right ureteral stone on the CT of the abdomen and pelvis. [place] causing his symptoms therefore he is being admitted to the hospital for further evaluation and pain management. He is admitted for his abdominal pain and noted to have a ureteral stone with renal colic pain. Patient seen by urologist and recommended conservative medical management and outpatient follow up with the for further evaluation of the ureteral stone. Patient received IV fluids, mannitol for diuresis, pain medications and supportive care and treatment. While in the hospital patient is noted to be in atrial fibrillation which is new onset for him with a rapid ventricular response. Therefore he is started on beta blocking agent as well as anticoagulation to prevent strokes. Patient had an echocardiogram showed ejection fraction around 40%. Patient counseled and educated regarding atrial fibrillation and risks of strokes versus risks of bleeding with anticoagulation. Patient is also counseled and educated regarding his diet exercise and compliance with his medications and outpatient follow-ups. While in the hospital patient's abdominal pain symptoms resolved. Heart rate is controlled. He is feeling better back to baseline normal status. Therefore it is felt he could be safely discharged home with close outpatient follow up with PCP and consultants as mentioned. Patient is advised to continue the medications as he is prescribed per his discharge med rec list. Patient and his son verbalized understanding of his hospital diagnosis, treatment he received, discharge medications, discharge instructions and agreed with the discharge follow-up plan of care. Condition at Discharge: Stable Final Diagnosis/Problems List Right ureteral stone, new onset AFib, morbid obesity Discharge Disposition: Home Discharge Instruct/Medications Diet: Consistent carbohydrate, Cardiac 2g Na,low cholest Activity: No Restrictions, As Tolerated Follow Up/Referral: Urologist Dr. Soren Overton in 7-10 days call to make an appointment for ureteral stone eval. Dr. harrell direct care provider for new onset atrial fibrillation in two weeks. Medications: As prescribed and home medications as you were taking. New Medications: Acetaminophen (Tylenol Extra Strength) 500 Mg Tab 500 MG PO Q4HPRN PRN, #20 TAB Apixaban Base (Eliquis) 5 Mg Tab 5 MG PO BID, #120 TAB Digoxin (Digoxin) 250 Mcg Tab 250 MCG PO DAILY, #5 TAB Metoprolol Tartrate (Metoprolol Tartrate) 25 Mg Tab 1 TAB PO BID, #60 TAB 1 Refill Tamsulosin Hcl (Flomax) 0.4 Mg Cap 1 CAP PO DAILY, #7 CAP Discharge Statement: "Patient was advised to return to the ER or call 911 if any headaches, dizziness, shortness of breath, chest pain, abdominal pain, bleeding, fevers, or worsening of medical condition. Patient was counseled about treatment plan, medications, possible side effects, patientverbalized understanding. All questions were answered to the best of my ability. This discharge took greater then 30 minutes in planning, reviewing documentation, counseling the patient, and discussing with other team members." ASSESSMENT ASSESSMENT Assessment Right ureteral stone, new onset AFib, morbid obesity JUDY VALENCIA MD Mar 09, 2024 15:50
--- NOTE | 2024-03-10 08:56 | ECG ---
[facility] Test Date: 2024-03-08 Test Time: 10:33:42 Pat Name: ADAN MURRIETA Department: Respiratoy Room: 0248T A Gender: M Biometrics Consultant: : 1955 Requested By: MADISON UDNN Order Number: [id number] Reading MD: Beka Cruz Measurements Intervals [place] Rate: 92 P: 0 [place]: 0 QRS: -14 QRSD: 74 T: 4 QT: 357 QTc: 442 Interpretive Statements Atrial fibrillation Inferior infarct, old Electronically Signed On 03-11-2024 17:24:32 PST by Beka Cruz Please click the below link to view image of tracing.
--- NOTE | 2024-03-10 08:57 | ECG ---
[facility] Test Date: 2024-03-08 Test Time: 10:32:40 Pat Name: ADAN MURRIETA Department: Respirat[facility] Room: 0248T A Gender: M Seaming Inspector: : 1955 Requested By: MADISON DUNN Order Number: [id number] Reading MD: Beka Cruz Measurements Intervals [place] Rate: 93 P: 0 [place]: 0 QRS: -17 QRSD: 84 T: -1 QT: 350 QTc: 436 Interpretive Statements Atrial fibrillation Inferior infarct, old Electronically Signed On 03-11-2024 17:24:31 PST by Beka Cruz Please click the below link to view image of tracing.
== END 2024-03-09 16:45 | disposition home or self-care (01) | DRG 694 ==
LOC: ER 04:47 → EEVIPCON 04:47 → TELE 11:25 → TELE-EAST 16:54
PROVIDERS: ADMIT Hospitalist; ATTEND Hospitalist
DX: N13.2 Hydronephrosis with renal and ureteral calculous obstruction (principal); Z68.43 Body mass index [BMI] 50.0-59.9, adult; E11.65 Type 2 diabetes mellitus with hyperglycemia; I11.0 Hypertensive heart disease with heart failure; I50.9 Heart failure, unspecified; I48.91 Unspecified atrial fibrillation; E66.01 Morbid (severe) obesity due to excess calories; Z82.49 Family history of ischemic heart disease and other diseases of the circulatory system; Z79.4 Long term (current) use of insulin; Z79.899 Other long term (current) drug therapy; N17.0 Acute kidney failure with tubular necrosis
CPT/HCPCS: 36415; 74176; 80048; 80053; 81001; 82962; 84439; 84443; 85025; 85610; 85730; 87086; 93005; 93306; 93970; 97163; 99291; G0378; J1815; J1885; J2405